=== PATIENT | male | born 1955 | race Caucasian/White ===

== ENCOUNTER 2019-10-05 16:03 | Outpatient (CLI) | payer MEDICARE ==
[2019-10-05 16:32] LABS: A1C 5.4 % (<5.7)
[2019-10-05 16:38] LABS: eGFR (Non-African) > 60
[2019-10-05 16:39] LABS: HDL 50 mg/dL (>40)
== END 2019-10-05 16:08 ==
LOC: LAB 16:03
PROVIDERS: ATTEND Family Medicine
DX: E78.00 Pure hypercholesterolemia, unspecified (principal); R73.9 Hyperglycemia, unspecified
CPT/HCPCS: 36415; 80053; 80061; 83036